=== PATIENT | male | born 1960 | race Caucasian/White ===

== ENCOUNTER 2017-09-21 21:39 | Emergency (ER) | payer OTHER ==
[~2017-09-21] VITALS: Ht 175.3 cm; Wt 90.7 kg
[2017-09-21 21:43] VITALS: BP 148/81
--- NOTE | 2017-09-21 21:56 | NUR ---
TO DIANNA Cooper
--- NOTE | 2017-09-21 21:56 | NUR ---
57Y M BIB FAMILY C/O RIGHT EYE PAIN, X 3 HOURS. PT STATES HE WAS EATING [employer] 3 HOURS AGO AND SOME FLAKES MAY HAVE ENTERED HIS EYE. PT STATES THERE IS SLIGHT DIFFICULTY SEEING OUT OF HIS RIGHT EYE, BUT DUE TO PT RUBBING. PT AAOX4, BREATHING IS UNLABORED AND EVEN. ER MD DR ROBLERO MADE AWARE.
[2017-09-21 21:59] VITALS: BP 148/81
--- NOTE | 2017-09-21 22:08 | NUR ---
Patient being evaluated by physician at bedside.
--- NOTE | 2017-09-21 22:16 | NUR ---
Patient discharged with v/s stable. Written and verbal after care instructions given and explained. Patient alert, oriented and verbalized understanding of instructions. Ambulatory with steady gait. All questions addressed prior to discharge. ID band removed. Patient advised to follow up with PMD. Rx of SULFACETAMIDE 10% DROPS given. Patient educated on indication of medication including possible reaction and side effects. Opportunity to ask questions provided and answered.
== END 2017-09-21 22:17 | disposition home or self-care (01) ==
LOC: MED 21:39
DX: H10.31 Unspecified acute conjunctivitis, right eye (principal)
CPT/HCPCS: 99283